=== PATIENT | male | born 1985 | race Caucasian/White ===

== ENCOUNTER 2021-04-22 16:13 | Outpatient (CLI) | payer OTHER, SELFPAY ==
--- NOTE | ~2021-04-22 | CT_ITS ---
EXAMINATION: CT sinus wo con DATE: 04/22/2021 16:39 INDICATION: Chronic sinusitis. TECHNIQUE: Computed tomography (CT) of the paranasal sinuses was performed without intravenous contra st. Iterative reconstruction technique was employed. The dose-length product was 183.13 mGy-cm. COMPARISON: None FINDINGS: The frontal sinuses are clear. There is mild mucosal thickening in the bilateral ethmoid an d sphenoid sinuses. The maxillary sinuses are clear. There is rightward deviation of the nasal septum . There is henrry bullosa involving the bilateral middle turbinates. The ostiomeatal units are patent . IMPRESSION: 1. Mild mucosal thickening in the ethmoid and sphenoid sinuses. 2. Rightward deviation of the nasal septum. Reviewed, dictated and finalized at location A.
== END 2021-04-22 16:14 | disposition home or self-care (01) ==
PROVIDERS: PCP Emergency Medicine; Visit Provider Emergency Medicine
DX: J32.9 Chronic sinusitis, unspecified (principal); J34.2 Deviated nasal septum
CPT/HCPCS: 70486

== ENCOUNTER 2021-12-30 00:13 | Day surgery (SDC) | payer OTHER, SELFPAY ==
[2021-12-23 15:26] VITALS: BMI 23.0
--- NOTE | 2021-12-23 15:26 | PC.NURSE ---
Report to the Outpatient Waiting Room, entrance under the green pavilion located off [facility], at time _0730__ on date _12/30/21__. OR Time: _0930___. - You and your visitor will be asked a series of questions to screen for COVID 19 for your protection. - Only one visitor is allowed at this time. - The patient visitor is requested to leave or wait in car when not with patient. - A mask is required within the hospital. Patients may have clear liquids (water, carbonated beverages, clear teas, apple juice) until 3 hours prior to surgery with a maximum of 20 ounces. - No food from midnight until time of surgery - Infants may have breast milk until 4 hours before surgery, formula 6 hours prior to surgery. - Children will be allowed to drink immediately following surgery. If applicable, please bring a bottle or sippy cup to assist with drinking. Juice, water, soda, and popsicles are readily available. For infants on formula, please bring formula the day of surgery. Pacifiers are allowed. Take the following medications with a SIP of water the morning of surgery: Medications to discontinue per physician _supplement or vitamins 3 days prior Date to take last dose Please no make-up, nail emirati, hairspray, perfume, deodorant, or body powder the day of surgery. No jewelry (including any body piercings) or valuables the day of surgery, leave them at home. Please take a shower or bath the night before, or the morning of, surgery with an antibacterial soap. Wear comfortable, loose fitting clothing. Children are encouraged to wear pajamas. - Jewelry must be removed prior to entering the operating room. Rings and piercings that are not removed may be cut off. - The hospital will not accept responsibility for valuables. - Please leave all valuables, including medications, at home the day of surgery. If you are going home after surgery, a licensed driver license agent must drive you home. - NO public transportation without another adult. - We recommend that an adult stay with you for 24 hours following discharge. - We also recommend that you do not drive, make important decision, drink alcoholic beverages, or take any drugs that were not prescribed by your health care provider for at least 24 hours after your discharge time. For Pediatric surgeries, we recommend two adults accompany the child home (only one inside the building at this time). Follow any additional instructions given to you from your surgeon. If you or anyone in your household have experienced Covid symptoms in the past week, please notify your surgeon or the nurse liaison at the phone number below for possible testing. Telephone instructions given to _Patient__and asked if any additional questions and then verbalized understanding. Patient advised to call surgeon office or pre surgery nurse liaison [phone] if any additional questions.
[2021-12-30] VITALS (7 sets, daily range): BP systolic 131–151; BP diastolic 78–95; PULSE 74–103; RESP 10–16; TEMP 36.1–36.6; O2SAT 94–100
[2021-12-30] MEDS: ACETAMINOPHEN 500 MG TABLET 1000 MG PO (07:43)
[2021-12-30] MEDS: LACTATED RINGERS 1,000 ML 30 ML IV CONT ×2 (07:51→10:35)
--- NOTE | 2021-12-30 08:14 | WPDANESEPPF ---
Anes - Initial Pre Proc Eval Procedure: Operation Date: 12/30/21 09:[address] Fusion Guided, Bilateral Ethmoidectomy, Bilateral Sphenoidotomy, Bilateral Turbinate Reduction, - Milton Dos Santos MD s Septoplasty - Milton Dos Santos MD Date/Time: 12/30/21 08:14 Surgeon: Milton Dos Santos MD Pre Op Diagnosis: chronic sinusitis, deviated septum, turbinate hype Patient Data Age: 36 Gender: M Height: 1.8 m Weight: 75.5 kg Last Vital Signs Temp 36.6 C 12/30/21 07:56 Pulse 74 12/30/21 07:56 Resp 16 12/30/21 07:56 BP 136/78 12/30/21 07:56 Pulse Ox 94 12/30/21 07:56 Allergies Allergy/AdvReac Type Severity Reaction Status Date / Time No Known Allergies Allergy Mild Verified 12/30/21 07:35 Home Medications Medication Instructions Recorded Confirmed Type No Home Medications 12/30/21 12/30/21 History Patient hx anesthesia problems: none Family hx anesthesia problems: none Results Review: All pre-operative results and documents have been reviewed as part of the pre-operative evaluation. [facility] Past Medical History Medical History (Updated 12/30/21 @ 08:19 by Jesus Torres MD) Sinusitis, chronic Surgical History Surgical History (Updated 12/30/21 @ 08:19 by Jesus Torres MD) History of thoracotomy Social History Social History Smoking status: Never smoker Alcohol intake: never Substance use: never Substance use type: does not use Living arrangements: with family Spiritual care concerns: No Anes - Eval Final PreProcedure Day of Procedure 12/30/21 08:14 Patient weight: normal Heart: regular rate and rhythm Lungs: clear to auscultation Airway: Mallampati scale class II and other (small narrow mouth) Neurological: alert and oriented Last oral intake: >/= 8 hours ASA classification: I Emergent: no Anesthetic plan: proceed Anesthesia type and monitoring: general ETT and standard monitoring Results Review: All pre-operative results and documents have been reviewed as part of the pre-operative evaluation. Informed Consent: The patient's anesthetic plan and its attendant risks and benefits were discussed with the patient/family/POA. Questions were solicited and answers provided to the satisfaction of the patient/family/POA.
--- NOTE | 2021-12-30 08:33 | WPDHPUPDATE1 ---
History and Physical Update Update Date/Time: 12/30/21 08:33 History and Physical has been reviewed, including an updated exam of the patient. There are NO changes in the patient's condition. Risks, benefits, and alternatives have been discussed and questions answered. Patient agrees to proceed with procedure.
[2021-12-30] MEDS: OXYMETAZOLINE HCL 0.05% NAS 15 ML BTL (*BKC) 1 SPRAY NASAL (08:45)
[2021-12-30] MEDS: ceFAZolin 2 GM/D5W 50 ML 2 GM/50 ML BAG IVPB (09:05)
[2021-12-30] MEDS: MUPIROCIN 2% OINT 22 GM TUBE 1 APPLIC EACH NARE (10:10)
[2021-12-30] MEDS: LIDO 1%/EPINEPHRINE 1:100,000 50 ML VIAL INFILTRATE (10:14)
--- NOTE | 2021-12-30 10:14 | W.PM.PROC2 ---
Procedure Note - Detailed Date of Procedure 12/30/21 Pre-op Diagnosis chronic sinusitis, deviated septum, turbinate hype Post-op Diagnosis Same Procedure Performed Endoscopic septoplasty, turbinoplasty, bilateral maxillary antrostomy, total ethmoidectomy and sphenoidotomy image guided. Surgeon Milton Dos Santos MD Anesthesia General Indications Chronic sinusitis, septal deviation Findings Bilateral accessory os of maxillary sinuses. Right septal deviation Description of Procedure On the date of procedure the patient was met in the preoperative area and risk and benefits of the procedure reviewed with the patient as documented in the H&P and they elected to proceed with surgery. Patient was brought back to the operating room by the anesthesia team and underwent general endotracheal anesthesia. Once an adequate plane of anesthesia was obtained a timeout was performed to assure the patient identification the patient here to be performed were correct. They were.The patient was then prepped and draped in the normal fashion for endoscopic sinus surgery. The diffusion image guidance system was calibrated and used for the entire case. Afrin-soaked pledgets were placed in the nasal cavities bilaterally. The entire case was performed under endoscopic visualization. The right side was narrowed due to septal deviation.? Thus, septoplasty was required.? A left hemitransfixion incision was made in the left caudal septum and a mucoperichondrial flap was elevated in the usual fashion. The flap was elevated under endoscopic visualization and the remainder of the case was performed with endoscopic assistance. Using a D-knife, an incision was made through the cartilaginous septum with care to preserve the appropriate caudal and dorsal ?L-strut? of cartilage. The cartilage was then disarticulated from the bony-cartilaginous junction and the deviated cartilage was removed. Further deviated bone and cartilage was removed from the maxillary crest and posterior bony septum with care to avoid injury to the mucoperichondrial flap using a combination of dissection and Lenin-Driss forceps. Once this was completed, the hemitransfixion incision was closed using simple interrupted 4-0 chromic suture. A quilting stitch to reapproximate the mucoperichondrial flaps was then placed using 4-0 plain gut suture on a Jonny needle. 1% lidocaine with 1:100,000 epinephrine was then injected into the root of the middle turbinate and lateral nasal wall bilaterally. Attention was first directed towards the left side. The middle turbinate was medialized and the osteomeatal complex was identified with a janice probe. Using a 90 degree backbiter, the uncinate process was reflected anteriorly and removed using a combination of sharp and powered dissection. There were bilateral accessory maxillary ostia with thick mucous draining from the maxillary sinuses so maxillary antrostomy was performed. The maxillary antrostomy was then created and widened by identifying the natural ostia and opening the sinus with straight federica-cut forceps, backbiter, and microdebrider. Continuing with the microdebrider, the anterior ethmoid bulla was opened. Careful dissection was carried out posteriorly, through the basal lamella and posterior ethmoid cells until the sphenoid rostrum was identified. A Chelsy suction bluntly identified the sphenoid os and the opening was widened with microdebrider and mushroom punch to 5mm. Using an image guided curved suction as well as J-curette, the posterior most ethmoid cell was identified and the ethmoids were bluntly fractured and dissected from posterior to anterior along the base of the skull. The remaining bone fragments were removed with appropriate curved instruments and microdebrider.? ? Next, the right maxillary antrostomy, ethmoidectomy and sphenoidotomy were carried out in identical fashion with similar findings of right accessory maxillary ostia.? No clinical evidence of CSF throughou
[2021-12-30] MEDS: fentaNYL CITRATE INJ (*CRX) 100 MCG/2 ML VIAL 25 MCG IV PUSH ×2 (10:32→10:35)
== END 2021-12-30 12:10 | disposition home or self-care (01) ==
PROVIDERS: PCP Emergency Medicine; Visit Provider Otolaryngology
PROC: (CPT 31256; principal; 2021-12-30 09:45)
PROC: (CPT 30520; 2021-12-30 09:45)
DX: J32.2 Chronic ethmoidal sinusitis (principal); J32.3 Chronic sphenoidal sinusitis; J34.2 Deviated nasal septum; J34.3 Hypertrophy of nasal turbinates; J30.2 Other seasonal allergic rhinitis
CPT/HCPCS: 31256; 31257; 61782; 30520; 30140; A9270; J0330; J0690; J1100; J2250; J2405; J2704; J3010; J7030; J7120

== ENCOUNTER 2025-02-07 13:05 | Outpatient (CLI) | payer OTHER, SELFPAY ==
--- NOTE | ~2025-02-07 | US_ITS ---
TESTICULAR ULTRASOUND (Doppler ultrasound interrogation techniques used as needed for this exam.) Ordering provider: Saravanan Castanon MD History: . left testicular pain . Comparison: None. FINDINGS: TESTICLES: Normal in size. The right measures 3.8x 2.7x 2.2 cm and the left measures 4.3x 2.7x 2.3 cm . Normal echogenicity bilaterally without mass lesion. Normal Doppler flow bilaterally. EPIDIDYMIDES: Normal in size. The right measures 0.7 cm and the left 0.5 cm. Normal echogenicity bila terally. Both demonstrate normal Doppler flow. HYDROCELE: None. VARICOCELE: None. OTHER ABNORMALITY: None seen. Scrotal thicknesses 0.3 cm bilaterally. IMPRESSION: normal testicular ultrasound. Reviewed, dictated and finalized at location A.
== END 2025-02-07 13:06 | disposition home or self-care (01) ==
LOC: GOSHIMG 13:07
PROVIDERS: PCP Emergency Medicine; Visit Provider Emergency Medicine
DX: N50.812 Left testicular pain (principal)
CPT/HCPCS: 76870; 93976